=== PATIENT | male | born 1965 | race Caucasian/White ===

== ENCOUNTER 2019-04-27 14:19 | Outpatient (CLI) | payer MEDICAID ==
[~2019-04-27] VITALS: Ht 185.4 cm; Wt 91.6 kg
[2019-04-27] MEDS ORDERED: LEVOTHYROXINE100 MC1 IV (14:30)
[2019-04-27 14:34] VITALS: BP 98/65
--- NOTE | 2019-04-27 21:15 | Consultation ---
DATE OF CONSULTATION: 04/27/2019 CONSULTING PHYSICIAN: Geovanny Manuel M.D. CHIEF COMPLAINT: Abdominal pain and bloating. HISTORY OF PRESENT ILLNESS: This is a 53-year-old male with numerous medical problems including gastroesophageal reflux disease, history of C. diff colitis after having stem cell implanted in his back. He has had an endoscopy and colonoscopy about a year and a half ago and also had a hemorrhoidectomy about five months ago. He is here for abdominal pain, bloating, and rectal bleeding. PAST MEDICAL HISTORY: 1. GERD. 2. History of hemorrhoids. 3. Hypothyroidism. 4. C. diff colitis. 5. DVT. PAST SURGICAL HISTORY: 1. Stem cell implantation in the back. 2. Hemorrhoidectomy. MEDICATIONS: Levothyroxine. FAMILY HISTORY: Coronary artery disease. SOCIAL HISTORY: The patient denies any tobacco, alcohol, or drug use. ALLERGIES: No known allergies. REVIEW OF SYSTEMS: Positive for gas, bloating, GERD, and rectal bleeding. PHYSICAL EXAMINATION: VITAL SIGNS: Temperature 98.6, blood pressure 98/65, pulse 80, and respirations 20. HEENT: Normocephalic and atraumatic. Sclerae are anicteric. NECK: Supple. No obvious evidence of lymphadenopathy. CARDIOVASCULAR: Regular rate and rhythm. Plus S1-S2. LUNGS: Decreased breath sounds bilaterally based on the supine exam. ABDOMEN: Soft, nontender. No rebound. No guarding. No peritoneal sign. EXTREMITIES: No cyanosis no clubbing, or edema. ASSESSMENT AND PLAN: This is a 53-year-old male with history of Clostridium difficile colitis, gastroesophageal reflux disease, and hemorrhoidal bleeding. Plan, given the patient had a colonoscopy and endoscopy about a year and a half ago, we are not going to plan at this time unless needed. We are going to treat the hemorrhoids with medical management including sitz baths and Anusol cream. The patient was instructed on how to apply it and how to do it. The patient also was given a prescription for , whichever he can obtain. The patient to follow up with his surgeon for post hemorrhoidectomy bleeding. Return to clinic if he has persistent bleeding. Geovanny Vosoghi, M.D. DR: NELSON JOB#: [id number] CC:
== END 2019-04-27 16:19 | disposition home or self-care (01) ==
LOC: PAN 14:19
DX: K21.9 Gastro-esophageal reflux disease without esophagitis (principal); E03.9 Hypothyroidism, unspecified; I25.10 Atherosclerotic heart disease of native coronary artery without angina pectoris; R14.0 Abdominal distension (gaseous); K62.5 Hemorrhage of anus and rectum
CPT/HCPCS: 99212